=== PATIENT | male | born 1990 | race Hispanic/Latino ===

== ENCOUNTER 2018-11-19 13:35 | Emergency (ER) | payer SELFPAY ==
--- NOTE | 2018-11-19 15:37 | RAD REPORT ---
EXAM DESCRIPTION: RAD - Ankle Right 3 View - 11/19/2018 2:51 pm CLINICAL HISTORY: Ankle pain, trauma COMPARISON: None. FINDINGS: No fracture, dislocation or periosteal reaction. No joint effusion seen. No joint space na rrowing. No soft tissue abnormality. IMPRESSION: Negative right ankle
--- NOTE | 2018-11-19 15:44 | EDPHYS ---
Physician Documentation [facility] Name: Gerri Simmons Age: 28 yrs Sex: Male : 1990 Arrival Date: 11/19/2018 Time: 13:37 Bed 18 Private MD: ED Physician Elbert Dawkins HPI: 11/19 15:42 This 28 yrs old Male presents to ER via Ambulatory with complaints of Ankle kb Injury. 15:42 The patient presents with an injury, pain, that is acute, tenderness. The complaints kb affect the right ankle. Onset: The symptoms/episode began/occurred today. Context: The problem was sustained at a sports field or court, resulted from playing soccer, The mechanism of injury is unknown. The patient can fully bear weight on the affected extremity. Associated signs and symptoms: The patient has no apparent associated signs or symptoms. Modifying factors: The symptoms are alleviated by nothing, the symptoms are aggravated by weight bearing. Severity of symptoms: At their worst the symptoms were mild, moderate, in the emergency department the symptoms are unchanged. The patient has not experienced similar symptoms in the past. The patient has not recently seen a physician. Historical: - Allergies: 13:46 No Known Allergies; aa5 - PMHx: 13:46 None; aa5 - PSHx: 13:46 None; aa5 - Immunization history:: Flu vaccine status is unknown. - Social history:: Smoking status: Patient uses tobacco products, denies chronic smoking, but will smoke occasionally. - Ebola Screening: : No symptoms or risks identified at this time. ROS: 15:42 Constitutional: Negative for fever, chills, and weight loss, Cardiovascular: Negative kb for chest pain, palpitations, and edema, Respiratory: Negative for shortness of breath, cough, wheezing, and pleuritic chest pain, Abdomen/GI: Negative for abdominal pain, nausea, vomiting, diarrhea, and constipation, Skin: Negative for injury, rash, and discoloration, Neuro: Negative for headache, weakness, numbness, tingling, and seizure. 15:42 MS/extremity: Positive for injury or acute deformity, pain, tenderness, of the right lateral malleolus. Exam: 15:39 Constitutional: This is a well developed, well nourished patient who is awake, alert, kb and in no acute distress. Head/Face: Normocephalic, atraumatic. Chest/axilla: Normal chest wall appearance and motion. Nontender with no deformity. No lesions are appreciated. Cardiovascular: Regular rate and rhythm with a normal S1 and S2. No gallops, murmurs, or rubs. Normal PMI, no JVD. No pulse deficits. Respiratory: Lungs have equal breath sounds bilaterally, clear to auscultation and percussion. No rales, rhonchi or wheezes noted. No increased work of breathing, no retractions or nasal flaring. Abdomen/GI: Soft, non-tender, with normal bowel sounds. No distension or tympany. No guarding or rebound. No evidence of tenderness throughout. Skin: Warm, dry with normal turgor. Normal color with no rashes, no lesions, and no evidence of cellulitis. Neuro: Awake and alert, GCS 15, oriented to person, place, time, and situation. Cranial nerves II-XII grossly intact. Motor strength 5/5 in all extremities. Sensory grossly intact. Cerebellar exam normal. Normal gait. 15:39 Musculoskeletal/extremity: Extremities: grossly normal except: noted in the right ankle: pain, tenderness, ROM: intact in all extremities, Circulation is intact in all extremities. Sensation intact. Weight bearing: able to fully bear weight. Vital Signs: 13:47 BP 113 / 84; Pulse 72; Resp 18 S; Temp 98.0(TE); Pulse Ox 98% on R/A; Pain 4/10; aa5 13:50 Weight 79.38 kg (M); aa5 MDM: 13:49 Patient medically screened. kb 15:39 Data reviewed: vital signs, nurses notes. Data interpreted: Pulse oximetry: on room air kb is 98 %. Interpretation: normal. Counseling: I had a detailed discussion with the patient and/or guardian regarding: the historical points, exam findings, and any diagnostic results supporting the discharge/admit diagnosis, radiology results, the need for outpatient follow up, a orthopedic surgeon, to return to the emergency department if symptoms worsen or persist or if there are any questions or concerns that arise at home. 11/19 13:49 Order name: Ankle Right 3 View XRAY; Complete Time: 15:39 kb 11/19 15:39 Order name: Prabhakar Wrap; Complete Time: 15:46 kb Administered Medications: 15:46 Drug: [place] 5 mg-325 mg 1 tabs Route: PO; em 16:10 Follow up: Response: No adverse reaction; Pain is decreased em 19:15 Follow up: Response: No adverse reaction; Pain is decreased em Disposition: 11/20 09:02 Co-signature as Attending Physician, Elbert Dawkins MD I agree with the assessment and nilson plan of care. Disposition: 11/19/18 15:43 Discharged to Home. Impression: Sprain of other ligament of right ankle. - Condition is Stable. - Discharge Instructions: Ankle Sprain, [id number]. - Medication Reconciliation Form, Thank You Letter, Antibiotic Education, Prescription Opioid Use form. - Follow up: Emergency Department; When: As needed; Reason: Worsening of condition. Follow up: Private Physician; When: 2 - 3 days; Reason: Recheck today's complaints, Continuance of care, Re-evaluation by your physician. Signatures: Dispatcher [employer] EDMS Kimberly Squires, PRINTING MANAGER-C PRINTING MANAGER-Elbert Arguello MD MD cha Munoz, Edgar, ORACLE DRM CONSULTANT ORACLE DRM CONSULTANT Jaylin Pagan, RN RN aa5 Corrections: (The following items were deleted from the chart) 11/19 16:05 15:43 11/19/2018 15:43 Discharged to Home. Impression: Sprain of other ligament of em right ankle. Condition is Stable. Forms are Medication Reconciliation Form, Thank You Letter, Antibiotic Education, Prescription Opioid Use. Follow up: Emergency Department; When: As needed; Reason: Worsening of condition. Follow up: Private Physician; When: 2 - 3 days; Reason: Recheck today's complaints, Continuance of care, Re-evaluation by your physician. kb
--- NOTE | 2018-11-19 15:44 | ER ---
Nurse's Notes [facility] Name: Gerri Simmons Age: 28 yrs Sex: Male : 1990 Arrival Date: 11/19/2018 Time: 13:37 Bed 18 Private MD: Diagnosis: Sprain of other ligament of right ankle Presentation: 11/19 13:46 Presenting complaint: Patient states: "I rolled my ankle playing soccer today and I aa5 heard a pop". Pt c/o right ankle pain. Transition of care: patient was not received from another setting of care. Onset of symptoms was November 19, 2018. Risk Assessment: Do you want to hurt yourself or someone else? Patient reports no desire to harm self or others. Initial Sepsis Screen: Does the patient meet any 2 criteria? No. Patient's initial sepsis screen is negative. Does the patient have a suspected source of infection? No. Patient's initial sepsis screen is negative. Care prior to arrival: None. 13:46 Method Of Arrival: Ambulatory aa5 13:46 Acuity: NOEL 4 aa5 Historical: - Allergies: 13:46 No Known Allergies; aa5 - PMHx: 13:46 None; aa5 - PSHx: 13:46 None; aa5 - Immunization history:: Flu vaccine status is unknown. - Social history:: Smoking status: Patient uses tobacco products, denies chronic smoking, but will smoke occasionally. - Ebola Screening: : No symptoms or risks identified at this time. Screenin:15 Abuse screen: Denies threats or abuse. Nutritional screening: No deficits noted. em Tuberculosis screening: No symptoms or risk factors identified. Fall Risk None identified. Assessment: 14:15 General: Appears in no apparent distress. comfortable, Behavior is calm, cooperative. em Pain: Complains of pain in right lateral malleolus Pain currently is 4 out of 10 on a pain scale. Neuro: Level of Consciousness is awake, alert, obeys commands, Oriented to person, place, time, situation, Appropriate for age. Cardiovascular: Capillary refill < 3 seconds Patient's skin is warm and dry. Pulses are palpable in right dorsalis pedis artery and left dorsalis pedis artery. Respiratory: Airway is patent Respiratory effort is even, unlabored, Respiratory pattern is regular, symmetrical. Musculoskeletal: Circulation, motion, and sensation intact. Capillary refill < 3 seconds, Range of motion: intact in all extremities, Swelling present in right foot. 14:20 Reassessment: The previous assessment is accurate, call light remains within reach. ss 15:34 Reassessment: Patient appears in no apparent distress at this time. Patient and/or em family updated on plan of care and expected duration. Pain level reassessed. Patient is alert, oriented x 3, equal unlabored respirations, skin warm/dry/pink. request some pain medication, provider notified, new medication orders received. Vital Signs: 13:47 BP 113 / 84; Pulse 72; Resp 18 S; Temp 98.0(TE); Pulse Ox 98% on R/A; Pain 4/10; aa5 13:50 Weight 79.38 kg (M); aa5 ED Course: 13:37 Patient arrived in ED. rg4 13:46 Arm band placed on. aa5 13:47 Triage completed. aa5 13:49 Kimberly Squires FNP-C [facility] kb 13:49 Elbert Dawkins MD is Attending Physician. kb 13:50 Hugo Peters LVN is Primary Nurse. em 14:15 Patient has correct armband on for positive identification. Placed in gown. Bed in low em position. Call light in reach. Adult w/ patient. 14:51 Ankle Right 3 View XRAY In Process Unspecified. EDMS 16:05 No provider procedures requiring assistance completed. Patient did not have IV access em during this emergency room visit. Administered Medications: 15:46 Drug: [place] 5 mg-325 mg 1 tabs Route: PO; em 16:10 Follow up: Response: No adverse reaction; Pain is decreased em 19:15 Follow up: Response: No adverse reaction; Pain is decreased em Outcome: 15:43 Discharge ordered by . kb 16:05 Discharged to home via wheelchair, with family. em 16:05 Condition: good 16:05 Discharge instructions given to patient, family, Instructed on discharge instructions, follow up and referral plans. Demonstrated understanding of instructions, follow-up care. 16:05 Patient left the ED. em Signatures: Dispatcher [employer] EDMS Kimberly Squires FNP-C FNP-Ckb Munoz, Edgar, LVN LVN em Jaylin Colunga RN RN aa5 Ernestine Buckner RN RN ss Terese Pope4 Corrections: (The following items were deleted from the chart) : 19:15 Response: No adverse reaction; Pain is decreased em em 19:15 16:10 Response: No adverse reaction; Pain is decreased em em
[2018-11-19] MEDS ORDERED: HYDROCODONE/APAP 5/325 MG TAB ONE (15:53)
== END 2018-11-19 16:05 | disposition home or self-care (01) ==
LOC: ER 13:35
DX: S93.491A Sprain of other ligament of right ankle, initial encounter (principal); X58.XXXA Exposure to other specified factors, initial encounter; Y93.66 Activity, soccer; Y92.9 Unspecified place or not applicable; Z72.0 Tobacco use
CPT/HCPCS: 99283

== ENCOUNTER 2020-02-08 22:24 | Emergency (ER) | payer SELFPAY ==
[2020-02-09] MEDS ORDERED: KETOROLAC 30 MG/ML INJ ONE (00:52)
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
[2020-02-09 01:58] VITALS: TEMP 98.1; O2SAT 100
[2020-02-09 01:59] VITALS: BP 129/89
--- NOTE | 2020-02-09 12:00 | RAD REPORT ---
EXAM DESCRIPTION: RAD - Tib Fib Right - 02/09/2020 1:25 am CLINICAL HISTORY: PAIN COMPARISON: No comparisons FINDINGS: No acute fracture or dislocation seen.
== END 2020-02-09 01:53 | disposition home or self-care (01) ==
LOC: ER 22:24
DX: S80.11XA Contusion of right lower leg, initial encounter (principal); V49.49XA Driver injured in collision with other motor vehicles in traffic accident, initial encounter
CPT/HCPCS: 99284

== ENCOUNTER 2024-05-07 08:12 | Emergency (ER) | payer SELFPAY ==
--- OUTSIDE RECORDS SUMMARY | 2024-05-07 08:17 | XMS REPORT | Continuity of Care Document ---
Author Name Unknown Address [address] [facility] [address] [place] [address] [facility] Address [address] [facility] [address] [place] [address] Care Team Providers Care Trade Economist Name Role Phone PCP, PATIENT DOES NOT HAVE A Primary Care Physic leah Unavailable CHAVA MARTINEZ Attending Clinician Unavailable Chava Mcguire Attending Clinician [phone] Justice Solorio MD Attending Clinician [phone] JUSTICE SOLORIO Attending Clinician Unavailable Shira Hurst Attending Clinician [phone] SHIRA RHODES Attending Clinician Unavailable CHAVA MARTINEZ Admitting Clinician Unavailable SHIRA RHODES Admitting Clinician Unavailable Payers Payer Name Policy Type Policy Number Effective Date Expirati on Date Source Problems Condition Name Condition Details Condition Category Status Onset Date Resolution Date Last Treatment Date Treating Clinician Comments Source No known active problems No known active problems Disease [facility] Allergies, Adverse Reactions, Alerts Allergy Name Allergy Type Status Severity Reaction(s) Onset Date Inactive Date Treating Clinician Comments Source NO KNOWN ALLERGIE S Drug Class Active [facility] Social History Social Habit Start Date Stop Date Quantity Comments Source Exposure to SARS-CoV-2 (event) 2022-05-29 00:00:00 2022-06-08 10:52:00 Not sure [facility] Alcohol intake 2022-06-08 00:00:00 2022-06-08 00:00:00 0 /d [facility] Tobacco use and exposure 2018-02-22 00:00:00 2018-02-22 00:00:00 Smokeless tobacco non-user [facility] Sex Assigned At 1990 00:00:00 1990 00:00:00 [facility] Smoking Status Start Date Stop Date Source Tobacco smoking consumption unknown [facility] Never smoked tobacco [facility] Medications Ordered Medication Name Filled Medication Name Start Date Stop Date Current Medication? Ordering Clinician Indication Dosage Frequency Signature (SIG) Comments Components Source NaCl 0.9% (NS) bolus infusion 1,000 mL 2021-08 18:00: 00 06-08 18:12 :00 No 1000mL at 999 mL/hr, 1,000 mL, IV Infusion, ONCE, 1 dose, On Tue06/08/22 at 1300, BRICE [facility] ketorolac (TORADOL) injection 30 mg 2021-08 17:15: 00 06-08 17:32 :00 No 30mg 30 mg, Slow IV Push, ONCE, 1 dose, On Tue06/08/22 at 1215, Routine [facility] metoclopram raul HCl (REGLAN) injection 10 mg 2021-08 17:15: 00 06-08 17:32 :00 No 10mg 10 mg, Slow IV Push, ONCE, 1 dose, On Tue06/08/22 at 1215, BRICE [facility] amoxicillin -clavulanat e 875-125 mg per tablet 2021-08 00:00: 00 Yes [id number] 1{tbl} Take 1 tablet by mouth every 12 (twelve) hours. [facility] ketorolac (TORADOL) injection 30 mg 2021-08 01:15: 00 06-04 00:34 :00 No 30mg 30 mg, Slow IV Push, ONCE, 1 dose, On Tue06/03/22 at 2015, Routine [facility] metoclopram raul HCl (REGLAN) injection 10 mg 2021-08 00:15: 06-04 00:34 :00 No 10mg 10 mg, Slow IV Push, ONCE, 1 dose, On Tue06/03/22 at 1915, BRICE [facility] NaCl 0.9% (NS) bolus infusion 1,000 mL 2021-08 23:00: 00 06-04 00:41 :00 No 1000mL at 999 mL/hr, 1,000 mL, IV Infusion, ONCE, 1 dose, On Tue06/03/22 at 1800, STAT [facility] naproxen (NAPROSYN) tablet 500 mg 01-20 01:15: 00 01-20 00:20 :00 No 500mg 500 mg, Oral, ONCE, 1 dose, On Tue01/19/22 at 2015, Routine [facility] naproxen (NAPROSYN) 500 mg tablet 01-19 00:00: 00 Yes [id number] 500mg Take 1 tablet by mouth 2 (two) times daily with meals. [facility] diclofenac 75 mg EC tablet 02-22 00:00: 00 Yes 75mg Take 1 tablet by mouth 2 (two) times daily with meals. [facility] cyclobenzap rine (FLEXERIL) 5 mg tablet 2015-08 00:00: 00 Yes 5mg Take 1 tablet by mouth 3 (three) times daily. [facility] pentazocine -naloxone (TALWIN NX) 50-0.5 mg tablet 2015-08 00:00: 00 Yes 1{tbl} Take 1 tablet by mouth every 4 (four) hours as needed for Pain for up to 20 doses. [facility] naproxen (NAPROSYN) 500 mg tablet 2014-08 00:00: 00 Yes 500mg Take 1 Tab by mouth 2 (two) times daily with meals. [facility] acetaminoph en-codeine (TYLENOL #3) 300-30 mg tablet 2014-08 00:00: 00 Yes 1{tbl} Take 1 Tab by mouth every 4 (four) hours as needed for Pain (scale 4-6). [facility] Vital Signs Vital Name Observation Time Observation Value Comments S elizabeth Systolic blood pressure 2022-06-08 15:53:00 137 mm[Hg] [facility] Diastolic blood pressure 2022-06-08 15:53:00 91 mm[Hg] [facility] Heart rate 2022-06-08 15:53:00 67 /min Un[facility] Body temperature 2022-06-08 15:53:00 36.67 [facility] Respiratory rate 2022-06-08 15:53:00 18 /min [facility] Body height 2022-06-08 15:53:00 172.7 cm [facility] Body weight 2022-06-08 15:53:00 86.183 kg [facility] BMI 2022-06-08 15:53:00 28.89 kg/m2 [facility] Oxygen saturation in Arterial blood by Pulse oximetry 2022-06-08 15:53:00 99 /min [facility] Systolic blood pressure 2022-06-04 01:00:00 119 mm[Hg] [facility] Diastolic blood pressure 2022-06-04 01:00:00 75 mm[Hg] [facility] Heart rate 2022-06-04 01:00:00 53 /min [facility] Respiratory rate 2022-06-04 01:00:00 18 /min [facility] Oxygen saturation in Arterial blood by Pulse oximetry 2022-06-04 01:00:00 91 /min [facility] Body temperature 2022-06-03 21:52:00 36.78 [facility] Body height 2022-06-03 21:52:00 175 cm [facility] Body weight 2022-06-03 21:52:00 86.183 kg [facility] BMI 2022-06-03 21:52:00 28.14 kg/m2 [facility] Systolic blood pressure 2022-01-20 00:00:00 126 mm[Hg] [facility] Diastolic blood pressure 2022-01-20 00:00:00 83 mm[Hg] [facility] Heart rate 2022-01-20 00:00:00 54 /min [facility] Respiratory rate 2022-01-20 00:00:00 18 /min [facility] Oxygen saturation in Arterial blood by Pulse oximetry 2022-01-20 00:00:00 97 /min [place] [facility] Body weight 2022-01-19 20:44:00 84.369 kg [facility] BMI 2022-01-19 20:44:00 30.95 kg/m2 [facility] Body temperature 2022-01-19 20:44:00 36.61 [facility] Body height 2022-01-19 20:44:00 165.1 cm [facility] Procedures Procedure Date / Time Performed Performing Clinicia n Source COMP. METABOLIC PANEL (00610) 2022-06-08 17:32:00 Chava Martinez [facility] CBC WITH DIFF 2022-06-08 17:32:00 Chava Martinez [facility] URINALYSIS 2022-06-08 17:32:00 Chava Martinez [facility] CT HEAD WO CONTRAST 2022-06-08 17:17:18 Anneliese Martinez [facility] CONSENT/REFUSAL FOR DIAGNOSIS AND TREATMENT 2022-06-08 15:48:47 Doctor Unassigned, [place] [facility] BASIC METABOLIC PANEL (NA, K, CL, CO2, GLUCOSE, BUN, CREATININE, CA) 2022-06-03 22:59:00 Justice Solorio [facility] CBC WITH DIFF 2022-06-03 22:59:00 Justice Solorio [facility] RAPID INFLUENZA A/B 2022-06-03 22:59:00 Justice Solorio [facility] COVID-19 (ID NOW RAPID TESTING) 2022-06-03 22:59:00 Justice Solorio [facility] NOTICE OF PRIVACY PRACTICES 2022-06-03 21:43:05 Doctor Unassigned, [place] [facility] US SCROTUM AND CONTENTS 2022-01-19 22:12:00 Shira Rhodes [facility] URINALYSIS 2022-01-19 21:12:00 Shira Rhodes [facility] COMP. METABOLIC PANEL ([id number]) 2022-01-19 21:11:00 Shira Rhodes [facility] CBC WITH DIFF 2022-01-19 21:11:00 Shira Rhodes [facility] NOTICE OF PRIVACY PRACTICES 2022-01-19 20:57:58 Doctor Unassigned, [place] [facility] CONSENT/REFUSAL FOR DIAGNOSIS AND TREATMENT 2022-01-19 20:35:34 Doctor Unassigned, [place] [facility] Encounters Start Date/Time End Date/Time Encounter Type Admission Type Attending [facility] Care Facility Care Department Encounter ID Source 2023-11-14 11:20:26 2023-11-14 11:20:[address] [facility] [id number] Tarik Matthews 2023-08-15 10:06:08 2023-08-15 10:06:08 Outpatient SFA [facility] [id number] Tarik Campo Byron 2023-07-28 14:15:15 2023-07-28 14:15:15 Outpatient SFA [facility]FA [id number] Tarik Campo Byron 2022-06-08 10:54:00 2022-06-08 14:03:00 Emergency X CHAVA MARTINEZ [facility] ERT [id number] [facility] 2022-06-08 10:54:00 2022-06-08 14:03:00 Emergency Chava Martinez [facility] [id number] [facility] 2022-06-03 16:55:00 2022-06-03 20:39:00 Emergency Justice Solorio [facility] [id number] [facility] 2022-06-03 16:55:00 2022-06-03 20:39:00 Emergency X JUSTICE SOLORIO [facility] ERT [id number] [facility] 2022-06-03 16:55:00 2022-06-03 20:39:00 Emergency X JUSTICE SOLORIO [facility] ERT [id number] [facility] 2022-01-19 15:46:00 2022-01-19 19:30:00 Emergency Shira Rhodes [facility] [id number] [facility] 2022-01-19 15:46:00 2022-01-19 19:30:00 Emergency SHIRA VILLANUEVA [facility] ERT [id number] [facility] Results Test Description Test Time Test Comments Results Result Co mments Source [id number] 05:14:07* Test Item Value Reference Range Interpretation Comme [facility] AMYLASE (test code = 2205) 65 U/L 28-100 [id number] 05:14:07* Test Item Value Reference Range Interpretation Comme [facility] LIPASE (test code = 2058) 20 U/L 13-60 UNLESS OTHERWISE INDICATED, ALL TESTING PERFORMED AT [facility] [address] [place] [address] [employer] LABORER: YENNY VELASQUEZ M.D. CLIA NUMBER [id number] [facility] [place]. [id number] CBC W/AUTO DIFF WITH [id number] 02:08:34* Test Item Value Reference Range Interpretation Comme [facility] WBC (test code = 1001) 10.6 K/UL 3.5-11.0 RBC (test code = 1002) 5.37 M/UL 4.50-6.10 HEMOGLOBIN (test code = 1003) 16.0 G/DL 13.5-17.0 HEMATOCRIT (test code = 1004) 47.8 % 40.0-51.0 MCV (test code = 1005) 89.0 fL 80.0-99.0 MCH (test code = 1006) 29.8 PG 25.0-33.0 MCHC (test code = 1007) 33.5 G/DL 31.0-36.0 RDW (test code = 1038) 12.0 % 11.5-15.0 NEUTROPHILS (test code = 1008) 66.3 % LYMPHOCYTES (test code = 1010) 22.7 % MONOCYTES (test code = 1011) 7.3 % EOSINOPHILS (test code = 1012) 2.7 % BASOPHILS (test code = 1013) 0.6 % IMMATURE GRANULOCYTES (test code = 1036) 0.4 % NUCLEATED RBCS (test code = 1065) 0.0 /100 WBC'S See_Comment [Automated messa ge] The system which generated this result transmitted reference range: 0.0. The reference range was not used to interpret this result as normal/abnormal. PLATELET COUNT (test code = 1015) 355 K/UL 130-400 ABSOLUTE NEUTROPHILS (test code = 1066) 7.03 K/UL 1.50-7.50 ABSOLUTE LYMPHOCYTES (test code = 1067) 2.40 K/UL 1.00-4.00 ABSOLUTE MONOCYTES (test code = 1068) 0.77 K/UL 0.20-1.00 ABSOLUTE EOSINOPHILS (test code = 1040) 0.29 K/UL 0.00-0.50 ABSOLUTE BASOPHILS (test code = 1069) 0.06 K/UL 0.00-0.20 ABS IMMATURE GRANULOCYTES (test code = 1020) 0.04 K/UL 0.00-0.10 ABS NUCLEATED RBCS (test code = 12636) 0.00 K/UL 0.00-0.11 COMP. METABOLIC PANEL (05118)2022-06-08 17:55:28* Test Item Value Reference Range Interpretation Comme nts NA (test code = 5256323874) 142 mmol/L 135-145 K (test code = 4806085589) 4.3 mmol/L 3.5-5.0 CL (test code = 7949384777) 102 mmol/L 98-108 CO2 TOTAL (test code = 8832273623) 29 mmol/L 23-31 AGAP (test code = 1666111091) 2-16 BUN (test code = 5552649145) 15 mg/dL 7-23 GLUCOSE (test code = 6131726510) 97 mg/dL 70-110 CREATININE (test code = 6374997280) 0.93 mg/dL 0.60-1.25 TOTAL BILI (test code = 1604548114) 1.0 mg/dL 0.1-1.1 CALCIUM (test code = 7801532955) 9.6 mg/dL 8.6-10.6 T PROTEIN (test code = 9952534220) 8.0 g/dL 6.3-8.2 ALBUMIN (test code = 0297250232) 4.8 g/dL 3.5-5.0 ALK PHOS (test code = 1303149870) 105 U/L 34-122 ALTv (test code = 1742-6) 112 U/L 5-50 H AST(SGOT) (test code = 2663043063) 53 U/L 13-40 H eGFR (test code = 0428139958) mL/min/1.73m2 YARITZA (test code = YARITZA) Association of Glomerular Filtration Rate (GFR) and Staging of Kidney Disease* + --+ --+ ------+| GFR (mL/min/1.73 m2) ?| With Kidney Damage ?| ?Without Kidney Damage+ --------+ --------+ +| ?>90 ?| ?Stage one ?| ? Normal ?+ ---+ ---+ -------+| ?60-89 ?| ?Stage two ?| ? Decreased GFR ? + --+ --+ ------+| ?30-59 ?| ?Stage three ?| ? Stage three ? + --+ --+ ------+| ?15-29 ?| ?Stage four ? | ? Stage four ?+ ---+ ---+ -------+| ?<15 (or dialysis) ? ?| ?Stage five ? | ? Stage five ?+ ---+ ---+ -------+ *Each stage assumes the associated GFR level has been in effect for at least three months. ?Stages 1 to 5, with or without kidney disease, indicate chronic kidney disease. Notes: Determination of stages one and two (with eGFR >59mL/min/1.73 m2) requires estimation of kidney damage for at least three months as defined by structural or functional abnormalities of the kidney, manifested by either:Pathological abnormalities or Markers of kidney damage (including abnormalities in the composition of the blood or urine or abnormalities in imaging tests). Lab Interpretation (test code = 32185-0) [facility] WITH [id number] 17:44:24* Test Item Value Reference Range Interpretation Comme nts WBC (test code = 6690-2) See_Comment [Automated messa ge] The system which generated this result transmitted reference range: 4.20 - 10.70 10*3/?L. The reference range was not used to interpret this result as normal/abnormal. RBC (test code = 789-8) See_Comment [Automated messa ge] The system which generated this result transmitted reference range: 4.26 - 5.52 10*6/?L. The reference range was not used to interpret this result as normal/abnormal. HGB (test code = 718-7) 16.4 g/dL 12.2-16.4 HCT (test code = 4544-3) 48.6 % 38.4-49.3 MCV (test code = 787-2) 88.7 fL 81.7-95.6 MCH (test code = 785-6) 29.9 pg 26.1-32.7 MCHC (test code = 786-4) 33.7 g/dL 31.2-35.0 RDW-SD (test code = 50582-3) 38.5 fL 38.5-51.6 RDW-CV (test code = 788-0) 11.8 % 12.1-15.4 L PLT (test code = 777-3) See_Comment H [Automated messa ge] The system which generated this result transmitted reference range: 150 - 328 10*3/?L. The reference range was not used to interpret this result as normal/abnormal. MPV (test code = 77453-9) 8.9 fL 9.8-13.0 L NRBC/100 WBC (test code = 1542100724) See_Comment [Automated [employer] ssage] The system which generated this result transmitted reference range: 0.0 - 10.0 /100 WBCs. The reference range was not used to interpret this result as normal/abnormal. NRBC x10^3 (test code = 5062259336) See_Comment [Automated messa ge] The system which generated this result transmitted reference range: 10*3/?L. The reference range was not used to interpret this result as normal/abnormal. GRAN MAT (NEUT) % (test code = 770-8) 62.3 % IMM GRAN % (test code = 4188119018) 0.60 % LYMPH % (test code = 736-9) 27.9 % MONO % (test code = 5905-5) 6.2 % EOS % (test code = 713-8) 2.6 % BASO % (test code = 706-2) 0.4 % GRAN MAT x10^3(ANC) (test code = 7046736519) 6.20 10*3/uL 1.99-6.95 IMM GRAN x10^3 (test code = 0218846639) 0.06 10*3/uL 0.00-0.06 LYMPH x10^3 (test code = 731-0) 2.78 10*3/uL 1.09-3.23 MONO x10^3 (test code = 742-7) 0.62 10*3/uL 0.36-1.02 EOS x10^3 (test code = 711-2) 0.26 10*3/uL 0.06-0.53 BASO x10^3 (test code = 704-7) 0.04 10*3/uL 0.01-0.09 Lab Interpretation (test code = 32585-3) [facility] 21:53:09* Test Item Value Reference Range Interpretation Comme nts NA (test code = 6409036555) 141 mmol/L 135-145 K (test code = 4221443704) 3.8 mmol/L 3.5-5.0 CL (test code = 1030252938) 103 mmol/L 98-108 CO2 TOTAL (test code = 5107877687) 28 mmol/L 23-31 AGAP (test code = 8779311227) 2-16 BUN (test code = 6254746619) 17 mg/dL 7-23 GLUCOSE (test code = 6881450731) 101 mg/dL 70-110 CREATININE (test code = 5428063966) 0.96 mg/dL 0.60-1.25 TOTAL BILI (test code = 0705543462) 1.1 mg/dL 0.1-1.1 CALCIUM (test code = 8757821540) 9.7 mg/dL 8.6-10.6 T PROTEIN (test code = 0520400450) 7.5 g/dL 6.3-8.2 ALBUMIN (test code = 3335017166) 4.9 g/dL 3.5-5.0 ALK PHOS (test code = 8701930138) 73 U/L 34-122 ALTv (test code = 1742-6) 66 U/L 5-50 H AST(SGOT) (test code = 8012129439) 48 U/L 13-40 H eGFR (test code = 1115845369) mL/min/1.73m2 YARITZA (test code = YARITZA) Association of Glomerular Filtration Rate (GFR) and Staging of Kidney Disease* + --+ --+ ------+| GFR (mL/min/1.73 m2) ?| With Kidney Damage ?| ?Without Kidney Damage+ --------+ --------+ +| ?>90 ?| ?Stage one ?| ? Normal ?+ ---+ ---+ -------+| ?60-89 ?| ?Stage two ?| ? Decreased GFR ? + --+ --+ ------+| ?30-59 ?| ?Stage three ?| ? Stage three ? + --+ --+ ------+| ?15-29 ?| ?Stage four ? | ? Stage four ?+ ---+ ---+ -------+| ?<15 (or dialysis) ? ?| ?Stage five ? | ? Stage five ?+ ---+ ---+ -------+ *Each stage assumes the associated GFR level has been in effect for at least three months. ?Stages 1 to 5, with or without kidney disease, indicate chronic kidney disease. Notes: Determination of stages one and two (with eGFR >59mL/min/1.73 m2) requires estimation of kidney damage for at least three months as defined by structural or functional abnormalities of the kidney, manifested by either:Pathological abnormalities or Markers of kidney damage (including abnormalities in the composition of the blood or urine or abnormalities in imaging tests). Lab Interpretation (test code = 61877-8) [facility] WITH [id number] 21:43:08* Test Item Value Reference Range Interpretation Comme nts WBC (test code = 6690-2) See_Comment [Automated goviral] The system which generated this result transmitted reference range: 4.20 - 10.70 10*3/?L. The reference range was not used to interpret this result as normal/abnormal. RBC (test code = 789-8) See_Comment [Automated messa ge] The system which generated this result transmitted reference range: 4.26 - 5.52 10*6/?L. The reference range was not used to interpret this result as normal/abnormal. HGB (test code = 718-7) 14.5 g/dL 12.2-16.4 HCT (test code = 4544-3) 42.5 % 38.4-49.3 MCV (test code = 787-2) 87.8 fL 81.7-95.6 MCH (test code = 785-6) 30.0 pg 26.1-32.7 MCHC (test code = 786-4) 34.1 g/dL 31.2-35.0 RDW-SD (test code = 98688-6) 39.0 fL 38.5-51.6 RDW-CV (test code = 788-0) 12.0 % 12.1-15.4 L PLT (test code = 777-3) See_Comment [Automated messa ge] The system which generated this result transmitted reference range: 150 - 328 10*3/?L. The reference range was not used to interpret this result as normal/abnormal. MPV (test code = 49749-3) 10.0 fL 9.8-13.0 NRBC/100 WBC (test code = 3758788770) See_Comment [Automated [employer] ssage] The system which generated this result transmitted reference range: 0.0 - 10.0 /100 WBCs. The reference range was not used to interpret this result as normal/abnormal. NRBC x10^3 (test code = 7436639738) <0.01 See_Comment [Automated messa ge] The system which generated this result transmitted reference range: 10*3/?L. The reference range was not used to interpret this result as normal/abnormal. GRAN MAT (NEUT) % (test code = 770-8) 61.2 % IMM GRAN % (test code = 3277012433) 0.40 % LYMPH % (test code = 736-9) 28.2 % MONO % (test code = 5905-5) 8.0 % EOS % (test code = 713-8) 1.6 % BASO % (test code = 706-2) 0.6 % GRAN MAT x10^3(ANC) (test code = 0124436217) 6.32 10*3/uL 1.99-6.95 IMM GRAN x10^3 (test code = 0003512708) 0.04 10*3/uL 0.00-0.06 LYMPH x10^3 (test code = 731-0) 2.91 10*3/uL 1.09-3.23 MONO x10^3 (test code = 742-7) 0.83 10*3/uL 0.36-1.02 EOS x10^3 (test code = 711-2) 0.16 10*3/uL 0.06-0.53 BASO x10^3 (test code = 704-7) 0.06 10*3/uL 0.01-0.09 Lab Interpretation (test code = 79441-1) [facility]"
[2024-05-07] MEDS ORDERED: BUPIVACAINE 0.5% PF 10 ML VIAL ONE (08:45)
[2024-05-07] MEDS ORDERED: LIDOCAINE 1% MPF 5 ML VIAL ONE (08:45)
[2024-05-07] MEDS ORDERED: IBUPROFEN 400 MG TAB ONE (08:45)
[2024-05-07] MEDS ORDERED: TDAP (DIPHTH,PERTUSS(ACELL),TET VAC) 0.5 ML VIAL IMVAC ONE (08:46)
[2024-05-07] MEDS ORDERED: HYDROCODONE/APAP 7.5/325 MG TAB ONE (08:46)
--- NOTE | 2024-05-07 09:53 | RAD REPORT ---
EXAM: Finger-Thumb Right HISTORY: [facility] MAIN foreign body Bed Name: 7 COMPARISON: None TECHNIQUE: 3 radiographic views of the right second finger submitted. FINDINGS: No evidence of acute fracture or dislocation. Joint alignment is maintained. Soft tissue s welling about the distal phalanx.. No significant degenerative changes are present. No radiopaque foreign body. IMPRESSION: Soft tissue swelling about the distal phalanx. No radiopaque foreign body detected.
--- NOTE | 2024-05-07 10:46 | ER ---
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 Coronavirus screen: At this time, the client does not indicate any symptoms associated with coronavirus-19. Ebola Screen: No symptoms or risks identified at this time. Complicating Factors: The type of wound is a puncture. Initial Sepsis Screen: Does the patient meet any 2 criteria? No. Patient's initial sepsis screen is negative. Does the patient have a suspected source of infection? No. Patient's initial sepsis screen is negative. Risk Assessment: Do you want to hurt yourself or someone else? Patient reports no desire to harm self or others. Onset of symptoms was May 07, 2024 at 07:30. 08:24 Method Of Arrival: Ambulatory bp 08:24 Acuity: NOEL 3 bp Triage Assessment: 08:25 General: Appears in no apparent distress. Behavior is calm, cooperative, appropriate bp for age. Pain: Complains of pain in right index finger. EENT: No deficits noted. Neuro: No deficits noted. Cardiovascular: No deficits noted. Respiratory: No deficits noted. GI: No signs and/or symptoms were reported involving the gastrointestinal system. : No signs and/or symptoms were reported regarding the genitourinary system. Derm: No deficits noted. Musculoskeletal: No deficits noted. Injury Description: Puncture sustained to right index finger. Historical: - Allergies: 08:25 No Known Allergies; bp - PMHx: 08:25 fatty liver; Gastroesophageal reflux disease; bp - Immunization history:: Adult Immunizations unknown, Last tetanus immunization: unknown. - Infectious Disease History:: Denies. - Social history:: Smoking status: Patient denies any tobacco usage or history of. Screenin:27 [facility] ED Fall Risk Assessment (Adult) History of falling in the last 3 months, bp including since admission No falls in past 3 months (0 pts) Confusion or Disorientation No (0 pts) Intoxicated or Sedated No (0 pts) Impaired Gait No (0 pts) Mobility Assist Device Used No (0 pt) Altered Elimination No (0 pt) Score/Fall Risk Level 0 - 2 = Low Risk. Abuse screen: Denies threats or abuse. Denies injuries from another. Nutritional screening: No deficits noted. Tuberculosis screening: No symptoms or risk factors identified. Assessment: 08:28 Reassessment: Patient appears in no apparent distress at this time. Patient and/or db family updated on plan of care and expected duration. Pain level reassessed. Patient is alert, oriented x 3, equal unlabored respirations, skin warm/dry/pink. General: Appears in no apparent distress. comfortable, Behavior is calm, cooperative. Neuro: Level of Consciousness is awake, alert, obeys commands, Oriented to person, place, time, situation. Respiratory: Airway is patent Respiratory effort is even, unlabored, Respiratory pattern is regular, symmetrical. Derm: Wound noted right hand and right index finger. 09:45 Reassessment: Patient appears in no apparent distress at this time. Patient and/or db family updated on plan of care and expected duration. Pain level reassessed. Patient is alert, oriented x 3, equal unlabored respirations, skin warm/dry/pink. PROVIDER AT BEDSIDE. 11:02 Reassessment: Cleaned right index finger with saline and dressed with gauze and Coban. .aa5 11:03 Reassessment: Patient is alert, oriented x 3, equal unlabored respirations, skin aa5 warm/dry/pink. Vital Signs: 08:24 BP 132 / 70; Pulse 51; Resp 16; Temp 98; Pulse Ox 98% ; bp ED Course: 08:17 Patient arrived in ED. mg5 08:23 Elbert Martins PA is PHCP. cp 08:23 Blu Harper DO is Attending Physician. cp 08:25 Triage completed. bp 08:25 Arm band placed on. bp 08:27 Patient has correct armband on for positive identification. bp 09:30 XRAY Finger-Thumb RIGHT In Process Unspecified. EDMS 11:03 No provider procedures requiring assistance completed. Patient did not have IV access aa5 during this emergency room visit. Administered Medications: 08:45 Drug: Hydrocodone-Acetaminophen PO (7.5 mg-325 mg) 1 tabs PO once; RASS on ADMIN: db Combtv4, Very Agttd3, Agttd2, Rstlss1, AlertClm0, Drwsy-1, Lt Sdtn-2, Mod Sdtn-3, Dp Sdtn-4, UnArsble-5 Route: PO; 11:02 Follow up: Response: No adverse reaction aa5 08:45 Drug: Ibuprofen PO 800 mg PO once Route: PO; db 11:02 Follow up: Response: No adverse reaction aa5 08:48 Drug: Boostrix Tdap IM 0.5 ml IM once; as a single dose Route: IM; Site: right deltoid; db 11:03 Follow up: Response: No adverse reaction aa5 08:50 Drug: Bupivacaine Infiltration (0.5 %) 5 ml 10 ml Infiltration once {Note: GIVEN TO db PROVIDER.} Volume: 10 ml; Route: Infiltration; 08:50 Drug: Lidocaine Infiltration (1 %) 5 ml 5 ml Infiltration once; to bedside {Note: GIVEN db TO PROVIDER.} Volume: 5 ml; Route: Infiltration; 11:02 Drug: Clindamycin PO 300 mg PO once Route: PO; aa5 11:02 Follow up: Response: No adverse reaction; Medication administered at discharge. aa5 Medication: 08:48 Vaccine Information Statement (VIS) provided today. Questions and/or concerns aa5 addressed. VIS edition date: March 13, 2021. Outcome: 10:45 Discharge ordered by MD. cp 11:03 Discharged to home ambulatory, aa5 11:03 Condition: stable 11:03 Discharge instructions given to patient, Instructed on discharge instructions, follow up and referral plans. medication usage, Demonstrated understanding of instructions, follow-up care, medications, Prescriptions given X 2, 11:04 Patient left the ED. aa5 Signatures: Dispatcher [employer] EDMS Jaylin Colunga, RN RN aa5 Elbert Martins PA PA cp Peltier, Brian, RN RN bp Benton, Danielle, RN RN Nicky Laboy mg5 Corrections: (The following items were deleted from the chart) 08:34 08:28 VIS not applicable for this client. db db 11:26 08:24 Jaylin Colunga, RN is Primary Nurse. aa5 aa5
--- NOTE | 2024-05-07 10:46 | EDPHYS ---
Physician Documentation [facility] Name: Gerri Simmons Age: 33 yrs Sex: Male : 1990 Arrival Date: 05/07/2024 Time: 08:12 Bed 7 Private MD: ED Physician Blu Harper HPI: 05/07 08:45 This 33 yrs old Male presents to ER via Ambulatory with complaints of cp Laceration - FINGER. 08:45 The patient or guardian reports a puncture wound, splintered piece of wood. The cp complaints affect the distal phalanx of right index finger. 08:45 Context: resulted from work. Onset: The symptoms/episode began/occurred this morning. cp Associated signs and symptoms: The patient has no apparent associated signs or symptoms. Historical: - Allergies: 08:25 No Known Allergies; bp - PMHx: 08:25 fatty liver; Gastroesophageal reflux disease; bp - Immunization history:: Adult Immunizations unknown, Last tetanus immunization: unknown. - Infectious Disease History:: Denies. - Social history:: Smoking status: Patient denies any tobacco usage or history of. ROS: 09:50 Constitutional: HX per hpi cp 09:50 MS/extremity: Positive for puncture, of the right index finger, cp 09:50 All other systems are negative, Exam: 09:53 Constitutional: The patient appears in no acute distress, alert, awake, non-toxic, well cp developed, well nourished, uncomfortable, 09:53 Head/Face: Normocephalic, atraumatic. cp 09:53 Cardiovascular: Rate: normal, 09:53 Respiratory: the patient does not display signs of respiratory distress, Respirations: normal, 09:53 Musculoskeletal/extremity: ROM: full active range of motion, in the right index finger, Perfusion: the extremity is normally perfused throughout, the right index finger Sensation intact. 09:53 Skin: injury, that can be described as with mild bleeding, puncture(s), that are deep, of the distal phalanx right index finger with dark colored embedded foreign body, Vital Signs: 08:24 BP 132 / 70; Pulse 51; Resp 16; Temp 98; Pulse Ox 98% ; bp Procedures: 10:45 Foreign Body Removal: sliver of wood, from the distal phalanx right index finger, by cp tweezers, The patient tolerated the removal well, digital block performed with 8 ccs 1% lidocaine w/o epi and 0.5% marcaine w/o epi. wound cleaned with betadine and wound irrigated with NS. MDM: 08:23 Patient medically screened. cp 09:00 Differential diagnosis: open fracture, closed fracture, contusion, abrasion. 10:45 Data reviewed: vital signs, nurses notes, radiologic studies, plain films, and as a cp result, I will discharge patient. 10:45 I considered the following discharge prescriptions or medication management in the emergency department Medications were administered in the Emergency Department. See MAR. Counseling: I had a detailed discussion with the patient and/or guardian regarding the historical points, exam findings, and any diagnostic results supporting the discharge/admit diagnosis, radiology results, to return to the emergency department if symptoms worsen or persist or if there are any questions or concerns that arise at home. Response to treatment: the patient's symptoms have mildly improved after treatment, and as a result, I will discharge patient. 05/07 08:35 Order name: XRAY Finger-Thumb RIGHT; Complete Time: 09:56 09 09:56 Interpretation: Reviewed. Administered Medications: 08:45 Drug: Hydrocodone-Acetaminophen PO (7.5 mg-325 mg) 1 tabs PO once; RASS on ADMIN: db Combtv4, Very Agttd3, Agttd2, Rstlss1, AlertClm0, Drwsy-1, Lt Sdtn-2, Mod Sdtn-3, Dp Sdtn-4, UnArsble-5 Route: PO; 11:02 Follow up: Response: No adverse reaction aa5 08:45 Drug: Ibuprofen PO 800 mg PO once Route: PO; db 11:02 Follow up: Response: No adverse reaction aa5 08:48 Drug: Boostrix Tdap IM 0.5 ml IM once; as a single dose Route: IM; Site: right deltoid; 11:03 Follow up: Response: No adverse reaction aa5 08:50 Drug: Bupivacaine Infiltration (0.5 %) 5 ml 10 ml Infiltration once {Note: GIVEN TO db PROVIDER.} Volume: 10 ml; Route: Infiltration; 08:50 Drug: Lidocaine Infiltration (1 %) 5 ml 5 ml Infiltration once; to bedside {Note: GIVEN db TO PROVIDER.} Volume: 5 ml; Route: Infiltration; 11:02 Drug: Clindamycin PO 300 mg PO once Route: PO; aa5 11:02 Follow up: Response: No adverse reaction; Medication administered at discharge. aa5 Disposition Summary: 05/07/24 10:45 Discharge Ordered Notes: Location: Home cp Problem: new cp Symptoms: have improved cp Condition: Stable cp Diagnosis - Puncture wound with foreign body of right index finger without damage to nail, cp initial encounter Followup: cp - With: Private Physician - When: 2 - 3 days - Reason: Worsening of condition Discharge Instructions: - Discharge Summary Sheet cp - Puncture Wound cp Forms: - Medication Reconciliation Form cp - Antibiotic Education cp - Prescription Opioid Use cp - Patient Portal Instructions cp - Leadership Thank You Letter cp - Family Work Release bp Prescriptions: - Clindamycin HCl 300 mg Oral Capsule - take 1 capsule ORAL route every 6 hours for 10 days; 40 capsule; Refills: 0, cp Product Selection Permitted - Ibuprofen 800 mg Oral Tablet - take 1 tablet ORAL route every 8 hours As needed take with food; 30 tablet; cp Refills: 0, Product Selection Permitted Addendum: 05/08/2024 15:46 Co-signature as Attending Physician, Blu Harper DO I reviewed the patient's care m s3 provided by the Advanced Practice Provider and agree with the diagnosis and treatment plan. Signatures: Dispatcher [employer] Jaylin Kelley, RN RN aa5 Elbert Martins PA PA cp Peltier, Brian, Blu Gomez RN, DO DO ms3 Madeline Baldwin RN RN db
[2024-05-07 11:10] VITALS: BP 132/70; TEMP 98; O2SAT 98
== END 2024-05-07 11:04 | disposition home or self-care (01) ==
LOC: ER 08:12
DX: S61.240A Puncture wound with foreign body of right index finger without damage to nail, initial encounter (principal)
CPT/HCPCS: 96372; 99284; J2001

== ENCOUNTER 2025-05-20 10:51 | Emergency (ER) | payer BC, SELFPAY ==
--- OUTSIDE RECORDS SUMMARY | 2025-05-20 11:01 | XMS REPORT | Continuity of Care Document ---
Author Name Unknown Address [address] [facility] [place] [address] [facility] [place] Address [address] 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 Role Phone PCP, PATIENT DOES NOT HAVE A Primary Care Physic leah Unavailable Chava Mcguire Attending Clinician [phone] CHAVA MARTINEZ Attending Clinician Unavailable JUSTICE SOLORIO Attending Clinician Unavailable Justice Solorio MD Attending Clinician Shira Hurst Attending Clinician [phone] SHIRA RHODES Attending Clinician Unavailable CHAVA MARTINEZ Admitting Clinician Unavailable SHIRA RHODES Admitting Clinician Unavailable Payers Payer Name Policy Type Policy Number Effective Date Expirati on Date Source MEDICAID ALIEN PENDING PENDING 2022 00:00:00 Problems Condition Name Condition Details Condition Category Status Onset Date Resolution Date Last Treatment Date Treating Clinician Comments Source No known active problems No known active problems Disease [facility] Allergies, Adverse Reactions, Alerts Allergy Name Allergy Type Status Severity Reaction(s) Onset Date Inactive Date Treating Clinician Comments Source NO KNOWN ALLERGIE S Drug Class Active [facility] Social History Social Habit Start Date Stop Date Quantity Comments Source Exposure to SARS-CoV-2 (event) 2022-05-29 00:00:00 2022-06-08 10:52:[address] [facility] Alcohol intake 2022-06-08 00:00:00 2022-06-08 00:00:00 0 /d [facility] Tobacco use and exposure 2018-02-22 00:00:00 2018-02-22 00:00:00 Smokeless tobacco non-user [facility] Sex Assigned At 1990 00:00:00 1990 00:00:[address] [facility] Smoking Status Start Date Stop Date Source Tobacco smoking consumption unknown [facility] Never smoked tobacco [facility] acute hospital Medications Ordered Medication Name Filled Medication Name Start Date Stop Date Current Medication? Ordering Clinician Indication Dosage Frequency Signature (SIG) Comments Components Source NaCl 0.9% (NS) bolus infusion 1,000 mL 2021-08 18:00: 00 06-08 18:12 :00 No 1000mL at 999 mL/hr, 1,000 mL, IV Infusion, ONCE, 1 dose, On Tue06/08/22 at 1300, [facility] ketorolac (TORADOL) injection 30 mg 2021-08 17:15: 00 06-08 17:32 :00 No 30mg 30 mg, Slow IV Push, ONCE, 1 dose, On Tue06/08/22 at 1215, Routine [facility] metoclopram raul HCl (REGLAN) injection 10 mg 2021-08 17:15: 00 06-08 17:32 :00 No 10mg 10 mg, Slow IV Push, ONCE, 1 dose, On Tue06/08/22 at 1215, [facility] amoxicillin -clavulanat e 875-125 mg per tablet 2021-08 00:00: 00 Yes [id number] 1{tbl} Take 1 tablet by mouth every 12 (twelve) hours. [facility] acute hospital ketorolac (TORADOL) injection 30 mg 2021-08 01:15: 00 06-04 00:34 :00 No 30mg 30 mg, Slow IV Push, ONCE, 1 dose, On Tue06/03/22 at 2015, Routine [facility] acute [facility] metoclopram raul HCl (REGLAN) injection 10 mg 2021-08 00:15: 00 06-04 00:34 :00 No 10mg 10 mg, Slow IV Push, ONCE, 1 dose, On Tue06/03/22 at 1915, [facility] NaCl 0.9% (NS) bolus infusion 1,000 mL 2021-08 23:00: 00 06-04 00:41 :00 No 1000mL at 999 mL/hr, 1,000 mL, IV Infusion, ONCE, 1 dose, On Tue06/03/22 at 1800, STAT [facility] acute hospital naproxen (NAPROSYN) tablet 500 mg 01-20 01:15: 00 01-20 00:20 :00 No 500mg 500 mg, Oral, ONCE, 1 dose, On Tue01/19/22 at 2015, Routine [facility] acute hospital naproxen (NAPROSYN) 500 mg tablet 01-19 00:00: 00 Yes [id number] 500mg Take 1 tablet by mouth 2 (two) times daily with meals. [facility] acute hospital diclofenac 75 mg EC tablet 02-22 00:00: 00 Yes 75mg Take 1 tablet by mouth 2 (two) times daily with meals. [facility] acute hospital cyclobenzap rine (FLEXERIL) 5 mg tablet 2015-08 00:00: 00 Yes 5mg Take 1 tablet by mouth 3 (three) times daily. [facility] acute hospital pentazocine -naloxone (TALWIN NX) 50-0.5 mg tablet 2015-08 00:00: 00 Yes 1{tbl} Take 1 tablet by mouth every 4 (four) hours as needed for Pain for up to 20 doses. [facility] acute hospital acetaminoph en-codeine (TYLENOL #3) 300-30 mg tablet 2014-08 00:00: 00 Yes 1{tbl} Take 1 Tab by mouth every 4 (four) hours as needed for Pain (scale 4-6). [facility] acute hospital naproxen (NAPROSYN) 500 mg tablet 2014-08 00:00: 00 Yes 500mg Take 1 Tab by mouth 2 (two) times daily with meals. [facility] acute hospital Vital Signs Vital Name Observation Time Observation Value Comments S elizabeth Systolic blood pressure 2022-06-08 15:53:00 137 mm[Hg] [facility] Diastolic blood pressure 2022-06-08 15:53:00 91 mm[Hg] [facility] Heart rate 2022-06-08 15:53:00 67 /min [facility] Body temperature 2022-06-08 15:53:[address] [facility] Respiratory rate 2022-06-08 15:53:00 18 /min [facility] Body height 2022-06-08 15:53:00 172.7 cm [facility] Body weight 2022-06-08 15:53:00 86.183 kg [facility] BMI 2022-06-08 15:53:00 28.89 kg/m2 [facility] Oxygen saturation in Arterial blood by Pulse oximetry 2022-06-08 15:53:00 99 /min [facility] Systolic blood pressure 2022-06-04 01:00:00 119 mm[Hg] [facility] Diastolic blood pressure 2022-06-04 01:00:00 75 mm[Hg] [facility] Heart rate 2022-06-04 01:00:00 53 /min [facility] Respiratory rate 2022-06-04 01:00:00 18 /min [facility] Oxygen saturation in Arterial blood by Pulse oximetry 2022-06-04 01:00:00 91 /min [facility] Body temperature 2022-06-03 21:52:[address] [facility] Body height 2022-06-03 21:52:00 175 cm [facility] Body weight 2022-06-03 21:52:00 86.183 kg [facility] BMI 2022-06-03 21:52:00 28.14 kg/m2 [facility] Systolic blood pressure 2022-01-20 00:00:00 126 mm[Hg] [facility] Diastolic blood pressure 2022-01-20 00:00:00 83 mm[Hg] [facility] Heart rate 2022-01-20 00:00:00 54 /min [facility] Respiratory rate 2022-01-20 00:00:00 18 /min [facility] Oxygen saturation in Arterial blood by Pulse oximetry 2022-01-20 00:00:00 97 /min [place] [facility] Body temperature 2022-01-19 20:44:[address] [facility] Body height 2022-01-19 20:44:00 165.1 cm [facility] Body weight 2022-01-19 20:44:00 84.369 kg [facility] BMI 2022-01-19 20:44:00 30.95 kg/m2 [facility] Procedures Procedure Date / Time Performed Performing Clinicia n Source COMP. METABOLIC PANEL (41522) 2022-06-08 17:32:[address] [facility] CBC WITH DIFF 2022-06-08 17:32:00 Chava Martinez [facility] URINALYSIS 2022-06-08 17:32:00 Chava Martinez [facility] CT HEAD WO CONTRAST 2022-06-08 17:17:18 Anneliese Martinez [facility] CONSENT/REFUSAL FOR DIAGNOSIS AND TREATMENT 2022-06-08 15:48:47 Doctor Unassigned, [place] [facility] BASIC METABOLIC PANEL (NA, K, CL, CO2, GLUCOSE, BUN, CREATININE, CA) 2022-06-03 22:59:[address] [facility] CBC WITH DIFF 2022-06-03 22:59:00 Justice Solorio [facility] RAPID INFLUENZA A/B 2022-06-03 22:59:[address] [facility] COVID-19 (ID NOW RAPID TESTING) 2022-06-03 22:59:[address] [facility] NOTICE OF PRIVACY PRACTICES 2022-06-03 21:43:05 Doctor Unassigned, [place] [facility] US SCROTUM AND CONTENTS 2022-01-19 22:12:[address] [facility] URINALYSIS 2022-01-19 21:12:00 Shira Rhodes [facility] COMP. METABOLIC PANEL (56080) 2022-01-19 21:11:[address] [facility] CBC WITH DIFF 2022-01-19 21:11:00 Shira Rhodes [facility] NOTICE OF PRIVACY PRACTICES 2022-01-19 20:57:58 Doctor Unassigned, [place] [facility] CONSENT/REFUSAL FOR DIAGNOSIS AND TREATMENT 2022-01-19 20:35:34 Doctor Unassigned, [place] [facility] Encounters Start Date/Time End Date/Time Encounter Type Admission Type Attending [facility] Care Department Encounter ID Source 2023-11-14 11:20:26 2023-11-14 11:20:26 Outpatient SFA SFA [id number] Tarik Matthews 2023-08-15 10:06:08 2023-08-15 10:06:08 Outpatient SFA [id number] [id number] Tarik Matthews 2023-07-28 14:15:15 2023-07-28 14:15:15 Outpatient SFA SFA [id number] Tarik Matthews 2022-06-08 10:54:00 2022-06-08 14:03:00 Emergency Chava Martinez [facility] [id number] General acute hospital 2022-06-08 10:54:00 2022-06-08 14:03:00 Emergency X CHAVA MARTINEZ [facility] [id number] General acute hospital 2022-06-03 16:55:00 2022-06-03 20:39:00 Emergency [facility] [id number] General acute hospital 2022-06-03 16:55:00 2022-06-03 20:39:00 Emergency X JUSTICE SOLORIO [facility] [id number] General acute hospital 2022-06-03 16:55:00 2022-06-03 20:39:00 Emergency Justice Solorio [facility] [id number] General acute hospital 2022-01-19 15:46:00 2022-01-19 19:30:00 Emergency Shira Rhodes [facility] [id number] General acute hospital 2022-01-19 15:46:00 2022-01-19 19:30:00 Emergency X SHIRA RHODES [facility] E[facility] [id number] General acute hospital Results Test Description Test Time Test Comments Results Result Co mments Source [id number] 05:14:07* Test Item Value Reference Range Interpretation Comme [facility] AMYLASE (test code = 2205) 65 U/L 28-100 [id number] 05:14:07* Test Item Value Reference Range Interpretation Comme [facility] LIPASE (test code = 2058) 20 U/L 13-60 UNLESS OTHERWISE INDICATED, ALL TESTING PERFORMED AT [facility] [address] [place] [address] FIREBOAT OPERATOR: YENNY VELASQUEZ M.D. CLIA NUMBER [id number] [facility] [place]. [id number] CBC W/AUTO DIFF WITH [id number] 02:08:34* Test Item Value Reference Range Interpretation Comme nts WBC (test code = 1001) 10.6 K/UL [...] 0.00-0.10 ABS NUCLEATED RBCS (test code = 32925) 0.00 K/UL 0.00-0.11 COMP. METABOLIC PANEL (99748)2022-06-08 17:55:28* Test Item Value Reference Range Interpretation Comme nts NA (test code = 9690556050) 142 mmol/L 135-145 K (test code = 4683290469) 4.3 mmol/L 3.5-5.0 CL (test code = 8194565981) 102 mmol/L 98-108 CO2 TOTAL (test code = 6076340007) 29 mmol/L 23-31 AGAP (test code = 5662331396) 2-16 BUN (test code = 0284796716) 15 mg/dL 7-23 GLUCOSE (test code = 2042539590) 97 mg/dL 70-110 CREATININE (test code = 5245130255) 0.93 mg/dL 0.60-1.25 TOTAL BILI (test code = 1315244213) 1.0 mg/dL 0.1-1.1 CALCIUM (test code = 4863853701) 9.6 mg/dL 8.6-10.6 T PROTEIN (test code = 5921139017) 8.0 g/dL 6.3-8.2 ALBUMIN (test code = 3812468077) 4.8 g/dL 3.5-5.0 ALK PHOS (test code = 7767343165) 105 U/L 34-122 ALTv (test code = 1742-6) 112 U/L 5-50 H AST(SGOT) (test code = 5256076805) 53 U/L 13-40 H eGFR (test code = 5664141394) mL/min/1.73m2 YARITZA (test code = YARITZA) Association [...] imaging tests). Lab Interpretation (test code = 73740-9) Abnormal [facility] WITH [id number] 17:44:24* Test Item Value Reference Range Interpretation [...] 33.7 g/dL 31.2-35.0 RDW-SD (test code = 25826-3) 38.5 fL 38.5-51.6 RDW-CV (test code = 788-0) 11.8 % 12.1-15.4 L PLT (test code = 777-3) See_Comment H [Automated messa ge] The system which generated this result transmitted reference range: 150 - 328 10*3/?L. The reference range was not used to interpret this result as normal/abnormal. MPV (test code = 40171-6) 8.9 fL 9.8-13.0 L NRBC/100 WBC (test code = 3080978786) See_Comment [Automated [employer] ssage] The system which generated this result transmitted reference range: 0.0 - 10.0 /100 WBCs. The reference range was not used to interpret this result as normal/abnormal. NRBC x10^3 (test code = 9918797863) See_Comment [Automated messa ge] The system which generated this result transmitted reference range: 10*3/?L. The reference range was not used to interpret this result as normal/abnormal. GRAN MAT (NEUT) % (test code = 770-8) 62.3 % IMM GRAN % (test code = 5724129489) 0.60 % LYMPH % (test code = 736-9) 27.9 % MONO % (test code = 5905-5) 6.2 % EOS % (test code = 713-8) 2.6 % BASO % (test code = 706-2) 0.4 % GRAN MAT x10^3(ANC) (test code = 6141355846) 6.20 10*3/uL 1.99-6.95 IMM GRAN x10^3 (test code = 5679979950) 0.06 10*3/uL 0.00-0.06 LYMPH x10^3 (test code = 731-0) 2.78 10*3/uL 1.09-3.23 MONO x10^3 (test code = 742-7) 0.62 10*3/uL 0.36-1.02 EOS x10^3 (test code = 711-2) 0.26 10*3/uL 0.06-0.53 BASO x10^3 (test code = 704-7) 0.04 10*3/uL 0.01-0.09 Lab Interpretation (test code = 14835-6) [facility]normal [facility] (41876)2022-01-19 21:53:09* Test Item Value Reference Range Interpretation Comme nts NA (test code = 9032724882) 141 mmol/L 135-145 K (test code = 0001376722) 3.8 mmol/L 3.5-5.0 CL (test code = 1424098902) 103 mmol/L 98-108 CO2 TOTAL (test code = 1082567996) 28 mmol/L 23-31 AGAP (test code = 6623203635) 2-16 BUN (test code = 4197241553) 17 mg/dL 7-23 GLUCOSE (test code = 1337759075) 101 mg/dL 70-110 CREATININE (test code = 4589551875) 0.96 mg/dL 0.60-1.25 TOTAL BILI (test code = 0742773795) 1.1 mg/dL 0.1-1.1 CALCIUM (test code = 8460420252) 9.7 mg/dL 8.6-10.6 T PROTEIN (test code = 8462308904) 7.5 g/dL 6.3-8.2 ALBUMIN (test code = 9865023812) 4.9 g/dL 3.5-5.0 ALK PHOS (test code = 0223282734) 73 U/L 34-122 ALTv (test code = 1742-6) 66 U/L 5-50 H AST(SGOT) (test code = 2313632622) 48 U/L 13-40 H eGFR (test code = 6386805037) mL/min/1.73m2 YARITZA (test code = YARITZA) Association [...] imaging tests). Lab Interpretation (test code = 46460-6) Abnormal [facility] WITH [id number] 21:43:08* Test Item Value Reference Range Interpretation [...] 34.1 g/dL 31.2-35.0 RDW-SD (test code = 04015-1) 39.0 fL 38.5-51.6 RDW-CV (test code = 788-0) 12.0 % 12.1-15.4 L PLT (test code = 777-3) See_Comment [Automated [employer] ge] The system which generated this result transmitted reference range: 150 - 328 10*3/?L. The reference range was not used to interpret this result as normal/abnormal. MPV (test code = 90311-5) 10.0 fL 9.8-13.0 NRBC/100 WBC (test code = 6367088904) See_Comment [Automated [employer] ssage] The system which generated this result transmitted reference range: 0.0 - 10.0 /100 WBCs. The reference range was not used to interpret this result as normal/abnormal. NRBC x10^3 (test code = 8198453469) <0.01 See_Comment [Automated [employer]] The system which generated this result transmitted reference range: 10*3/?L. The reference range was not used to interpret this result as normal/abnormal. GRAN MAT (NEUT) % (test code = 770-8) 61.2 % IMM GRAN % (test code = 8572468429) 0.40 % LYMPH % (test code = 736-9) 28.2 % MONO % (test code = 5905-5) 8.0 % EOS % (test code = 713-8) 1.6 % BASO % (test code = 706-2) 0.6 % GRAN MAT x10^3(ANC) (test code = 7983090032) 6.32 10*3/uL 1.99-6.95 IMM GRAN x10^3 (test code = 5505545410) 0.04 10*3/uL 0.00-0.06 LYMPH x10^3 (test code = 731-0) 2.91 10*3/uL 1.09-3.23 MONO x10^3 (test code = 742-7) 0.83 10*3/uL 0.36-1.02 EOS x10^3 (test code = 711-2) 0.16 10*3/uL 0.06-0.53 BASO x10^3 (test code = 704-7) 0.06 10*3/uL 0.01-0.09 Lab Interpretation (test code = 09747-4) Abnormal [facility]"
--- NOTE | 2025-05-20 12:03 | RAD REPORT ---
EXAMINATION: CT PELVIS WITHOUT CONTRAST CLINICAL INDICATION: Male, 34 years old.[facility] MAIN PAIN Bed Name: IW5 TECHNIQUE: CT pelvis was performed, without IV contrast, as per department protocol. Axial, sagittal and coronal reconstructions were obtained. One or more of the following dose reduction techniques were used: Automated exposure control, adjustment of the mA and/or kV according to patient size, and/ or iterative reconstruction. Unless otherwise specified, incidental findings do not require dedicated imaging follow-up. COMPARISON: No prior exam. FINDINGS: The lack of intravenous contrast limits the sensitivity of this exam for evaluation of solid visceral organs, vascular structures, and retroperitoneum. MUSCULOSKELETAL: No acute or suspicious osseous abnormality. URINARY SYSTEM: Suboptimal urinary bladder distention limits evaluation. Otherwise bladder is unremar kable. Mild prostatomegaly. GASTROINTESTINAL TRACT: Included small bowel is normal in caliber. No wall thickening or bowel inflam matory changes. LYMPH NODES: No lymphadenopathy. ABDOMINAL AORTA AND OTHER VESSELS: Normal caliber of the lower aorta, iliac vessels, and IVC. ADDITIONAL FINDINGS: None. IMPRESSION: No acute abnormalities of the bony pelvis. Evaluation limited by lack of IV contrast.
--- NOTE | 2025-05-20 12:45 | EDPHYS ---
Physician Documentation [facility] Name: Gerri Simmons Age: 34 yrs Sex: Male : 1990 Arrival Date: 05/20/2025 Time: 10:51 Bed 11 Private MD: ED Physician Bartolome Martinez HPI: 05/20 12:43 This 34 yrs old Male presents to ER via Ambulatory with complaints of Leg kb Injury - LT, Foot Injury - LT. 12:43 Patient is a 34-year-old male who presents for left groin pain after his foot slipped kb and caused him to do the splits. States he did not fall to the ground. States unable to walk due to pain. Historical: - Allergies: 11:16 No Known Allergies; me1 - PMHx: 11:16 fatty liver; Gastroesophageal reflux disease; me1 - PSHx: 11:16 None; me1 - Immunization history:: Adult Immunizations. - Infectious Disease History:: Denies. - Social history:: Smoking status: Patient denies any tobacco usage or history of. ROS: 12:42 Constitutional: As per HPI kb Exam: 12:42 Constitutional: This is a well developed, well nourished patient who is awake, alert, kb and in no acute distress. Head/Face: Normocephalic, atraumatic. ENT: Moist Mucous membranes Respiratory: Respirations even and unlabored. No increased work of breathing. Talking in full sentences Abdomen/GI: Soft, non-tender. No distention Skin: Warm, dry with normal turgor. Normal color. Neuro: Awake and alert, GCS 15, oriented to person, place, time, and situation. 12:42 Musculoskeletal/extremity: Extremities: grossly normal except: noted in the left femoral area and suprapubic area: decreased ROM, pain, ROM: limited active range of motion due to pain, Circulation is intact in all extremities. Sensation intact. Weight bearing: is unable to bear weight, Vital Signs: 11:14 BP 115 / 80; Pulse 64; Resp 18; Temp 98.4; Pulse Ox 100% ; Weight 79.38 kg; Height 5 me1 ft. 7 in. ; Pain 0/10; 13:04 BP 116 / 82; Pulse 66; Resp 16; Temp 98.2; Pulse Ox 100% ; hh1 11:14 Body Mass Index 27.41 (79.38 kg, 170.18 cm) me1 11:14 Pain Scale: Adult me1 MDM: 10:59 Medical Screening Exam initiated kb 12:44 Differential diagnosis: Sprain, strain, fracture. Data reviewed: vital signs, nurses kb notes. Historians other than the Patient: Spouse/Significant Other: Significant other. Counseling: I had a detailed discussion with the patient and/or guardian regarding the historical points, exam findings, and any diagnostic results supporting the discharge/admit diagnosis, radiology results, the need for outpatient follow up, a family practitioner, to return to the emergency department if symptoms worsen or persist or if there are any questions or concerns that arise at home. 05/20 11:16 Order name: CT Pelvis wo Cont; Complete Time: 12:07 kb Administered Medications: 13:03 Drug: HYDROcodone-acetaminophen PO 5 mg-325 mg 1 tabs PO once Route: PO; [facility] 13:07 Follow up: Response: No adverse reaction [facility] 13:03 Drug: Diazepam PO 2 mg PO once Route: PO; [facility] 13:07 Follow up: Response: No adverse reaction [facility] Disposition: 17:49 Co-signature as Attending Physician, Bartolome Martinez MD I reviewed the patient's care rn provided by the Advanced Practice Provider and agree with the diagnosis and treatment plan. Disposition Summary: 05/20/25 12:45 Discharge Ordered Notes: Location: Home Condition: Stable kb Diagnosis - Strain of muscle, fascia and tendon of pelvis, initial encounter kb Followup: kb - With: Emergency Department - When: As needed - Reason: Worsening of condition Followup: kb - With: Private Physician - When: 2 - 3 days - Reason: Recheck today's complaints, Continuance of care, Re-evaluation by your physician Discharge Instructions: - Discharge Summary Sheet kb - Muscle Strain, Rrst-ue-Zzue kb Forms: - Medication Reconciliation Form kb - Antibiotic Education kb - Prescription Opioid Use kb - Patient Portal Instructions - Leadership Thank You Letter Prescriptions: - Cyclobenzaprine 10 mg Oral tablet - take 1 tablet ORAL route every 8 hours As needed; 21 tablet; Refills: 0, kb Product Selection Permitted - Diclofenac Sodium 75 mg Oral tablet, delayed release (enteric coated) - take 1 tablet ORAL route 2 times per day As needed; 30 tablet; Refills: 0, kb Product Selection Permitted Signatures: Dispatcher [employer] Kimberly Mack, CREDIT COLLECTIONS MANAGER-C CREDIT COLLECTIONS MANAGER-Ckb Bartolome Martinez MD MD rn Alley Schmidt RN RN me1 Francine Flores RN RN hh1
--- NOTE | 2025-05-20 12:45 | ER ---
Nurse's Notes [facility] Name: Gerri Simmons Age: 34 yrs Sex: Male : 1990 Arrival Date: 05/20/2025 Time: 10:51 Bed 11 Private MD: Diagnosis: Strain of muscle, fascia and tendon of pelvis, initial encounter Presentation: 05/20 11:14 Chief complaint: Patient states: slipped and legs opened as if doing the splits, heard me1 something and felt something tear on left groin. Pain is 0/10 at rest. 10/10 with movement and/or weight bearing. Coronavirus screen: At this time, the client does not indicate any symptoms associated with coronavirus-19. Ebola Screen: No symptoms or risks identified at this time. Initial Sepsis Screen: Does the patient meet any 2 criteria? No. Patient's initial sepsis screen is negative. Does the patient have a suspected source of infection? No. Patient's initial sepsis screen is negative. Risk Assessment: Do you want to hurt yourself or someone else? Patient reports no desire to harm self or others. Onset of symptoms was May 20, 2025 at 10:30. 11:14 Method Of Arrival: [facility] 11:14 Acuity: NOEL 3 al1 Triage Assessment: 13:06 General: Appears uncomfortable, Behavior is calm, cooperative, appropriate for age. hh1 Injury Description: Slipped and now c/o groin and upper leg pain. Historical: - Allergies: 11:16 No Known Allergies; me1 - PMHx: 11:16 fatty liver; Gastroesophageal reflux disease; me1 - PSHx: 11:16 None; me1 - Immunization history:: Adult Immunizations. - Infectious Disease History:: Denies. - Social history:: Smoking status: Patient denies any tobacco usage or history of. Screenin:04 [facility] ED Fall Risk Assessment (Adult) History of falling in the last 3 months, [facility] including since admission Yes- single mechanical fall (1 pt) Confusion or Disorientation No (0 pts) Intoxicated or Sedated No (0 pts) Impaired Gait No (0 pts) Mobility Assist Device Used No (0 pt) Altered Elimination No (0 pt) Score/Fall Risk Level 0 - 2 = Low Risk Oriented to surroundings, Maintained a safe environment, Educated pt \T\ family on fall prevention, incl call for assistance when getting out of bed, Assessed \T\ reinforced patient's understanding of fall precautions, Hourly rounding (assess needs \T\ fall precautionary measures) done, Used ambulatory aids as needed (educated on \T\ assisted with). Abuse screen: Denies threats or abuse. Denies injuries from another. Nutritional screening: No deficits noted. Tuberculosis screening: No symptoms or risk factors identified. Assessment: 13:04 Pain: Complains of pain in right leg and left leg. Neuro: No deficits noted. hh1 Cardiovascular: No deficits noted. Respiratory: No deficits noted. Musculoskeletal: Reports pain in pelvis, right leg and left leg. Vital Signs: 11:14 BP 115 / 80; Pulse 64; Resp 18; Temp 98.4; Pulse Ox 100% ; Weight 79.38 kg; Height 5 me1 ft. 7 in. ; Pain 0/10; 13:04 BP 116 / 82; Pulse 66; Resp 16; Temp 98.2; Pulse Ox 100% ; hh1 11:14 Body Mass Index 27.41 (79.38 kg, 170.18 cm) me1 11:14 Pain Scale: Adult al1 ED Course: 10:57 Patient arrived in ED. cj3 10:59 [facility] kb 10:59 Bartolome Martinez MD is Attending Physician. kb 11:16 Triage completed. me1 11:16 Arm band placed on Patient placed in an exam room. me1 11:26 CT Pelvis wo Cont In Process Unspecified. EDMS 13:04 Patient has correct armband on for positive identification. Bed in low position. Call [facility] light in reach. Provided Education on: discharge instructions, medications given. 13:04 No provider procedures requiring assistance completed. Patient did not have IV access [facility] during this emergency room visit. Administered Medications: 13:03 Drug: HYDROcodone-acetaminophen PO 5 mg-325 mg 1 tabs PO once Route: PO; [facility] 13:07 Follow up: Response: No adverse reaction [facility] 13:03 Drug: Diazepam PO 2 mg PO once Route: PO; [facility] 13:07 Follow up: Response: No adverse reaction [facility] Medication: 13:04 VIS not applicable for this client. [facility] Outcome: 12:45 Discharge ordered by . kb 13:04 Discharged to home with crutches, [facility] 13:04 Condition: good 13:04 Discharge instructions given to patient, family, Instructed on discharge instructions, follow up and referral plans. medication usage, Demonstrated understanding of instructions, follow-up care, medications, Prescriptions given X 2, 13:07 Patient left the ED. [facility] Signatures: Dispatcher [employer] EDKimberly Thao, DIVISIONAL HUMAN RESOURCES DIRECTOR-C DIVISIONAL HUMAN RESOURCES DIRECTOR-Alley Littlejohn RN RN al1 Mariajose Hernandez 3 Francine Flores, DENISSE RN 1
[2025-05-20] MEDS ORDERED: HYDROCODONE/APAP 5/325 MG TAB ONE (12:53)
[2025-05-20] MEDS ORDERED: DIAZEPAM 2 MG TABLET ONE (12:53)
[2025-05-20 15:43] VITALS: O2SAT 100
[2025-05-20 15:44] VITALS: BP 116/82; TEMP 98.2
== END 2025-05-20 13:07 | disposition home or self-care (01) ==
LOC: ER 10:51
DX: S39.013A Strain of muscle, fascia and tendon of pelvis, initial encounter (principal); W01.0XXA Fall on same level from slipping, tripping and stumbling without subsequent striking against object, initial encounter; Y93.9 Activity, unspecified; Y92.9 Unspecified place or not applicable; K76.0 Fatty (change of) liver, not elsewhere classified; K21.9 Gastro-esophageal reflux disease without esophagitis
CPT/HCPCS: 72192; 99283